=== PATIENT | female | born 1930 | race Asian ===

== ENCOUNTER → 2017-03-15 | Outpatient (CLI) | payer OTHER | LOC: ULTRA 15:38 | DX: E04.2 Nontoxic multinodular goiter (principal) ==

== ENCOUNTER 2017-04-02 11:41 | Inpatient (IN) | payer OTHER ==
[~2017-04-02] VITALS: Ht 147.3 cm; Wt 46.7 kg
[2017-04-02 11:42] VITALS: BP 157/69
[2017-04-02] MEDS ORDERED: GLIPIZIDE 10 MG10 MG PO (12:54)
[2017-04-02] MEDS ORDERED: METFORMIN HCL1000 MG PO (12:54)
[2017-04-02] MEDS ORDERED: LIPITOR 20 MG T20 M1 PO (12:55)
[2017-04-02 15:16] VITALS: BP 115/50
[2017-04-02 15:30] VITALS: BP 128/67
[2017-04-02 21:31] VITALS: BP 119/47
[2017-04-03 00:17] VITALS: BP 108/51
[2017-04-03 04:33] VITALS: BP 110/54
[2017-04-03 07:40] VITALS: BP 148/58
[2017-04-03 16:00] VITALS: BP 131/84
[2017-04-03 20:00] VITALS: BP 144/76
[2017-04-04 04:00] VITALS: BP 129/68
[2017-04-04 08:56] VITALS: BP 129/74
[2017-04-04] MEDS ORDERED: HYDROCODON-ACE1 EAC7 PO (10:28)
[2017-04-04] MEDS ORDERED: MIRALAX17 GM PO (10:29)
[2017-04-04 10:42] VITALS: BP 129/74
[2017-04-04 11:51] VITALS: BP 129/74
== END 2017-04-04 13:30 | disposition home health service (06) | DRG 544 ==
LOC: ER 11:41 → 5S 13:54 → EROBS 13:54 → 5S 15:18
DX: M80.052A Age-related osteoporosis with current pathological fracture, left femur, initial encounter for fracture (principal); E11.9 Type 2 diabetes mellitus without complications; E78.00 Pure hypercholesterolemia, unspecified; W18.39XA Other fall on same level, initial encounter; Z90.710 Acquired absence of both cervix and uterus; Z85.3 Personal history of malignant neoplasm of breast; Z86.73 Personal history of transient ischemic attack (TIA), and cerebral infarction without residual deficits; Y93.89 Activity, other specified; Y92.89 Other specified places as the place of occurrence of the external cause; Y99.8 Other external cause status
CPT/HCPCS: 10086

== ENCOUNTER → 2017-04-16 | Outpatient (CLI) | payer OTHER ==
[~2017-04-16] MED LIST: GLIPIZIDE 10 MG10 MG PO; HYDROCODON-ACE1 EAC7 PO; LIPITOR 20 MG T20 M1 PO; METFORMIN HCL1000 MG PO; MIRALAX17 GM PO
== END ==
LOC: MRI 14:28
DX: M48.56XA Collapsed vertebra, not elsewhere classified, lumbar region, initial encounter for fracture (principal); M47.896 Other spondylosis, lumbar region; M48.06 Spinal stenosis, lumbar region

== ENCOUNTER → 2017-04-24 | Outpatient (CLI) | payer OTHER ==
[~2017-04-24] VITALS: Ht 147.3 cm; Wt 44.5 kg
[~2017-04-24] MED LIST changes: +ACTOS 30 MG TAB30 M1 PO
[2017-04-24 09:15] VITALS: BP 154/69
[2017-04-24 09:34] LABS: HEMATOCRIT 38.5 % (37.0-47.0); HEMOGLOBIN 12.9 gm/dL (12.0-15.0); MCHC 33.4 g/dL (28.0-37.0); MCV 95.8 fL (80.0-100.0); RBC 4.02 mil/uL (4.20-5.00); RDW 13.8 % (10.5-14.5); WBC 5.1 thou/uL (4.0-11.0)
[2017-04-24 09:45] LABS: CALCIUM 8.8 mg/dL (8.5-10.1); CREATININE 0.7 mg/dL (0.6-1.0); POTASSIUM 3.9 mmol/L (3.5-5.1)
[2017-04-24 09:50] LABS: APTT 28.7 Seconds (24.5-32.8); PROTIME 9.6 Seconds (9.3-11.4)
== END | disposition home or self-care (01) ==
LOC: SPEC 08:10 → CAT 08:53 → SPEC 13:59
PROVIDERS: Radiology Vascular & Interventional Radiology
DX: M48.56XA Collapsed vertebra, not elsewhere classified, lumbar region, initial encounter for fracture (principal); E11.9 Type 2 diabetes mellitus without complications; E78.00 Pure hypercholesterolemia, unspecified; Z90.710 Acquired absence of both cervix and uterus; Z98.890 Other specified postprocedural states; Z79.84 Long term (current) use of oral hypoglycemic drugs

== ENCOUNTER → 2017-05-14 | Outpatient (CLI) | payer OTHER | LOC: CAT 10:06 | DX: E04.2 Nontoxic multinodular goiter (principal); R22.0 Localized swelling, mass and lump, head ==

== ENCOUNTER 2017-05-31 18:14 | Inpatient (IN) | payer OTHER ==
[~2017-05-31] VITALS: Ht 147.3 cm; Wt 46.7 kg
--- NOTE | ~2017-05-31 | EKG ---
[place] [address] [place] [address] ELECTROCARDIOGRAM REPORT Name: IGLESIA WEST Room #: 311-P ADM IN M.R.#: [id number] Admission: 05/31/17 Attend Phys: Pema Sahu Discharge: Date of : 34 Report #: [id number] THIS REPORT FOR: //name// [facility] Test Date: 2017-06-01 Test Time: 08:28:10 Pat Name: IGLESIA WEST Department: Room: 311 P Gender: F Maintenance Man: CANDY : 1930 Requested By: Teodora Sandra Order Number: [id number] MD: Chepe Travis Measurements Intervals [place] Rate: 88 P: 39 NM: 118 QRS: -1 QRSD: 69 T: 34 QT: 384 QTc: 465 Interpretive Statements Sinus rhythm Borderline short NM interval Low voltage, precordial leads Compared to ECG 09/30/2006 09:34:04 Low QRS voltage now present Electronically Signed On 06-01-2017 12:45:59 CDT by Chepe Travis [email or web address] <ELECTRONICALLY SIGNED> By: Chepe Travis MD 06/01/17 1245 7 Chepe Travis MD /CHICO
--- NOTE | ~2017-05-31 | D ---
[facility] [place] [address] DISCHARGE SUMMARY Name: IGLESIA WEST Room #: 311-P [facility] IN M.R.#: [id number] Admission: 05/31/17 Attend Phys: Pema Sahu Discharge: 06/01/17 Date of : 34 Report #: [id number] THIS REPORT FOR: //name// CC: Pema Clifforden Nancie DATE OF SERVICE: 06/01/2017 HISTORY OF PRESENT ILLNESS: The patient is an 86-year-old female with diabetes mellitus type 2 and dyslipidemia, who came to the hospital with a chest pain. Please refer to the admission H and P for details. In brief, the patient developed pain on the day of admission, that she described as "grabbing and squeezing." The pain was 7/10 in intensity. Shortly after admission, her pain resolved. HOSPITALIZATION COURSE: The patient was hospitalized for the chest pain. As noted, shortly after hospitalization pain resolved. The patient had 3 sets of the cardiac enzymes, that were negative. EKG was unremarkable. By next morning, the patient was seen by geotechnical engineer, who recommended discharging the patient home. Outpatient stress test is scheduled. Currently, the patient's overall condition and physical examination is acceptable, and as noted, she is chest pain free. DISCHARGE DIAGNOSES: 1. Atypical chest pain, resolved. 2. Diabetes mellitus type 2. 3. Dyslipidemia. DISCHARGE MEDICATIONS: Same as admission medications, please refer to the medication reconciliation list. DISPOSITION: The patient is discharged home. FOLLOWUP PLAN: 1. Outpatient myocardial stress test. 2. Follow up with the primary care physician in 1-2 weeks. By: 1243 [id number] Benny Noland MD /nt
--- NOTE | ~2017-05-31 | HC ---
[facility] [place] [address] CONSULTATION Name: IGLESIA WEST Room #: 311-P [facility] IN M.R.#: [id number] Admission: 05/31/17 Attend Phys: Pema Sahu Discharge: 06/01/17 Date of : 34 Report #: [id number] THIS REPORT FOR: //name// CC: Pema Canada DATE OF SERVICE: 06/01/2017 INDICATION: Chest pains. HISTORY OF PRESENT ILLNESS: This is an 86-year-old female presenting with complaints of chest discomfort. She was at home playing Wii with her when she developed discomfort. She describes a tightness across the chest area, radiating around the back. It was not associated with any shortness of breath or diaphoresis. The pain persisted and she came to the ER for an evaluation. The patient also reports having a rash on her face, hands and arms that began yesterday after she was outside cutting down some trees. There is no history of fever, chills, PND, orthopnea or diarrhea. PAST MEDICAL HISTORY: Significant for diabetes mellitus, contact dermatitis, and hypercholesterolemia. ALLERGIES: None. MEDICATIONS: At home include metformin, glipizide 10 mg twice a day, Lipitor 10 mg at night and Actos. SOCIAL HISTORY: Negative for tobacco use. FAMILY HISTORY: Negative for premature CAD. REVIEW OF SYSTEMS: A full 10-point review of systems performed. Only the pertinent positives and negatives are described in the HPI. PHYSICAL EXAMINATION: VITAL SIGNS: Blood pressure is 140/70, heart rate is 88 beats per minute. GENERAL APPEARANCE: This is an elderly appearing female in no acute respiratory distress. HEAD AND EYES: Normocephalic. Sclerae are anicteric. ENT: Oral mucosa moist. NECK: Supple. LUNGS: Clear to auscultation. CARDIAC: Regular rate and rhythm, S1, S2 positive. ABDOMEN: Soft, nontender. EXTREMITIES: No cyanosis, no edema. [facility] [address] [place] [address] CONSULTATION Name: IGLESAI WEST Room #: 311-P [facility] IN M.R.#: [id number] Admission: 05/31/17 Attend Phys: Pema Duncan Bernadette Discharge: 06/01/17 Date of : 34 Report #: [id number] ECG reveals sinus rhythm, otherwise within normal limits. LABORATORY VALUES: Serial troponin is negative x 3. IMPRESSION AND PLAN: 1. Chest pain syndrome, serial troponin levels are negative and the ECG is unremarkable. Her pain has resolved, unlikely to be ischemic at this time. Would consider discharge and follow up as an outpatient. 2. Diabetes mellitus, continue with medications. 3. Hypercholesterolemia, tolerating statin therapy, offers no complaints of myalgias. 4. Rash, consider antiallergic medications. Thank you for allowing me to participate in the care of your patient. <ELECTRONICALLY SIGNED> By: Chepe Travis MD 06/02/17 0836 1205 1854 Chepe Travis MD /iqra
--- NOTE | ~2017-05-31 | EKG ---
[address] [place] [address] ELECTROCARDIOGRAM REPORT Name: GILESIA WEST Room #: 311-P ADM IN M.R.#: [id number] Admission: 05/31/17 Attend Phys: Pema Sahu Discharge: Date of : 34 Report #: [id number] THIS REPORT FOR: //name// [facility] ED Test Date: 2017-05-31 Test Time: 18:22:08 Pat Name: IGLESIA WEST Department: Room: [facility] Gender: F Interventional Neuroradiologist: MARGUERITE : 1930 Requested By: Cherry Cassidy Order Number: [id number] MD: Chepe Travis Measurements Intervals [place] Rate: 68 P: 32 [place]: 135 QRS: 11 QRSD: 72 T: 48 QT: 418 QTc: 445 Interpretive Statements Sinus rhythm Compared to ECG 09/30/2006 09:34:04 No significant changes Electronically Signed On 06-01-2017 12:42:17 CDT by Chepe Travis [email or web address] <ELECTRONICALLY SIGNED> By: Chepe Travis MD 06/01/17 1242 [id number] Chepe Travis MD /CHICO
[~2017-05-31 18:14] MED LIST changes: -CLARITIN10 MG PO
[2017-05-31 18:15] VITALS: BP 162/64
[2017-05-31 19:09] LABS: ABSOLUTE NEUTROPHILS 3.4 thou/uL (1.4-8.2); BASOPHILS 0.5 % (0.0-2.0); EOSINOPHILS 1.7 % (0.0-3.0); HEMOGLOBIN 12.9 gm/dL (12.0-15.0); MCH 32.2 pg (26.0-34.0); MCV 94.9 fL (80.0-100.0); MONOCYTES 9.6 % (1.0-8.0); PLATELET COUNT 176 thou/uL (150-400); POLYS 61.2 % (36.0-66.0); RBC 4.01 mil/uL (4.20-5.00); RDW 14.2 % (10.5-14.5); WBC 5.6 thou/uL (4.0-11.0)
[2017-05-31 19:16] LABS: ANION GAP 10 mmol/L (7-16); BUN 18 mg/dL (7-18); CHLORIDE 103 mmol/L (98-107); CO2 25 mmol/L (21-32); CREATININE 0.7 mg/dL (0.6-1.0); GLUCOSE 180 mg/dL (74-106); MANUAL DIFF NO; SODIUM 138 mmol/L (136-145)
[2017-05-31 19:25] LABS: TROPONIN-I < 0.04 ng/mL (<0.04-0.07)
[2017-05-31 20:11] LABS: ALBUMIN 3.6 g/dL (3.4-5.0); ALKALINE PHOSPHATASE 126 U/L (46-116); DIRECT BILIRUBIN < 0.1 mg/dL (<0.1-0.3); SGOT 108 U/L (15-37); SGPT 53 U/L (30-65); TOTAL BILIRUBIN 0.3 mg/dL (<0.1-1.0); TOTAL PROTEIN 6.8 g/dL (6.4-8.2)
[2017-05-31 20:32] VITALS: BP 132/70
[2017-05-31 21:22] VITALS: BP 123/79
[2017-05-31 21:37] VITALS: BP 163/90
[2017-06-01 00:10] VITALS: BP 120/50
[2017-06-01 04:00] VITALS: BP 131/74
[2017-06-01 08:09] LABS: CHOLESTEROL 164 mg/dL (<200); HDL CHOLESTEROL 84 mg/dL (>40); LDL CHOLESTEROL 72 mg/dL (<100); TRIGLYCERIDE 41 mg/dL (<150); VLDL 8 mg/dL (<40)
[2017-06-01 08:16] VITALS: BP 144/76
[2017-06-01 12:12] VITALS: BP 144/76
[2017-06-01] MEDS ORDERED: CLARITIN10 MG PO (12:48)
[2017-06-01 13:04] VITALS: BP 144/76
[2017-06-01 13:25] VITALS: BP 144/76
[2017-06-02 01:05] LABS: GLYCOHEMOGLOBIN (HGB A1C) 7.7 % (4.8-5.6)
== END 2017-06-01 13:26 | disposition home or self-care (01) | DRG 313 ==
LOC: ER 18:14 → EROBS 19:59 → 3N 21:23
PROVIDERS: Emergency Medicine; Nurse Practitioner Acute Care
DX: R07.89 Other chest pain (principal); E11.9 Type 2 diabetes mellitus without complications; E78.00 Pure hypercholesterolemia, unspecified; L25.9 Unspecified contact dermatitis, unspecified cause; R21 Rash and other nonspecific skin eruption; E78.5 Hyperlipidemia, unspecified; Z80.0 Family history of malignant neoplasm of digestive organs; Z79.4 Long term (current) use of insulin; Z86.73 Personal history of transient ischemic attack (TIA), and cerebral infarction without residual deficits; Z90.710 Acquired absence of both cervix and uterus; Z82.3 Family history of stroke
CPT/HCPCS: 10096

== ENCOUNTER → 2017-05-31 | Outpatient (CLI) | payer OTHER ==
[~2017-05-31] MED LIST changes: +CLARITIN10 MG PO
--- NOTE | ~2017-05-31 | CNG ---
[facility] [place] [address] CYTO-NONGYN REPORT PROCEDURE Name: IGLESIA ANG Room #: REG Mohini Jiménez#: [id number] Admission: 05/31/17 Date of : 34 Discharge: Report #: [id number] Path Case #: [id number] CYTOPATHOLOGY REPORT COLLECTION DATE: 05/31/2017 RECEIVED DATE: 05/31/2017 SUBMITTING PHYS: Dr. Baldemar Escoto Jr. OTHER PHYS: Dr. Ulises Canada CLINICAL HISTORY: Left parotid nodule. SPECIMEN(S) RECEIVED: A.US guided Fine needle aspiration, Left parotid nodule B.US guided Needle aspiration, parotid cyst * * * * * * * * * * * * FINAL DIAGNOSIS: A. Left parotid nodule, US guided Fine needle aspiration: - No malignant epithelial cells identified. - Rare epithelioid cells, macrophages and numerous aggregates of lymphocytes present. B. Parotid cyst, US guided Needle aspiration: - No malignant epithelial cells identified. - Numerous aggregates of lymphocytes present in a background of debris. COMMENT: Numerous aggregates of lymphocytes are present in addition to rare epithelioid cells comprised of eosinophilic cytoplasm. Acinic cells or oncocytic cells or ductal epithelial cells are not present. Findings may be suggestive of aspiration of a lymph node within the parotid gland, a cyst with lymphoid tissue or chronic inflammation of the parotid gland. Nature of the sample precludes a definitive diagnosis. Please correlate clinically and follow up as indicated. PATHOLOGIST: Desire Mandel M.D. REPORT ELECTRONICALLY SIGNED BY: Desire Mandel M.D. DATE/TIME: 06/03/2017 16:50 * * * * * * * * * * * * GROSS PATHOLOGY: A. US guided Fine needle aspiration, Left parotid nodule: The specimen is labeled "Iglesia Ang" and consists of three fixed slides, three air dried slides. Twenty mL of cloudy red fluid in fixative from the needle rinse is also submitted and one ThinPrep slide and an alcohol fixed cell block were prepared from this material. Also received is the RNA Retain vial which will be held for molecular studies if needed. B. US guided Fine needle aspiration, parotid cyst: The specimen is labeled "Iglesia Ang" and consists of two fixed slides. [address] [address] CYTO-NONGYN REPORT PROCEDURE Name: IGLESIA ANG Room #: REG [facility].#: [id number] Admission: 05/31/17 Date of : 34 Discharge: Report #: [id number] Path Case #: [id number] mL of cloudy opaque fluid unfixed from the needle rinse is also submitted and one ThinPrep slide and a formalin fixed cell block were prepared from this material. (clt 05.31.2017) HEAT REGULATOR(S): TYRONE Chaudhari(ASCP) INITIAL CPT CODE(S): A; 63052, 01637 B; 86063, 41885 Professional services performed by [facility] at [address] [place] [address] Technical services performed by [facility] at [address] [place] [address]., [address], [place] [address]. [facility] [address] [place] [address], [address] [place] [address] PHONE: [phone] DIRECTOR: Gilberto Brannon M.D. * * * END OF REPORT * * *
== END | disposition home or self-care (01) ==
LOC: ULTRA 08:34
DX: K11.8 Other diseases of salivary glands (principal); K11.6 Mucocele of salivary gland; M81.0 Age-related osteoporosis without current pathological fracture; Z79.899 Other long term (current) drug therapy

== ENCOUNTER → 2017-06-13 | Outpatient (CLI) | payer OTHER ==
[~2017-06-13] MED LIST changes: +CLARITIN10 MG PO
== END ==
LOC: NUC 06:56
DX: R79.89 Other specified abnormal findings of blood chemistry (principal)

== ENCOUNTER → 2017-07-09 | Outpatient (CLI) | payer OTHER | LOC: RAD 03:25 | DX: Z12.31 Encounter for screening mammogram for malignant neoplasm of breast (principal) ==

== ENCOUNTER → 2018-07-28 | Outpatient (CLI) | payer OTHER | LOC: BC 03:22 | DX: Z12.31 Encounter for screening mammogram for malignant neoplasm of breast (principal) ==

== ENCOUNTER → 2019-03-31 | Outpatient (CLI) | payer OTHER | LOC: ULTRA 09:30 | DX: M79.652 Pain in left thigh (principal); M79.89 Other specified soft tissue disorders ==

== ENCOUNTER → 2019-08-04 | Outpatient (CLI) | payer OTHER | LOC: RAD 09:58 | DX: Z12.31 Encounter for screening mammogram for malignant neoplasm of breast (principal) ==

== ENCOUNTER 2019-12-31 21:13 | Emergency (ER) | payer OTHER ==
[~2019-12-31] VITALS: Ht 144.8 cm; Wt 47.6 kg
[2019-12-31] MEDS ORDERED: TRAMADOL 50 MG50 MG PO (23:40)
[2020-01-01] VITALS: BP 165/60
[2020-01-21] MEDS ORDERED: ATORVASTATIN CA20 MG PO (11:30)
== END 2020-01-01 00:02 | disposition home or self-care (01) ==
LOC: ER 21:13
DX: S32.020A Wedge compression fracture of second lumbar vertebra, initial encounter for closed fracture (principal); E78.00 Pure hypercholesterolemia, unspecified; Z79.899 Other long term (current) drug therapy; W18.39XA Other fall on same level, initial encounter; Y93.89 Activity, other specified; Y92.89 Other specified places as the place of occurrence of the external cause; Y99.8 Other external cause status

== ENCOUNTER → 2020-01-11 | Outpatient (CLI) | payer OTHER ==
[~2020-01-11] MED LIST changes: +TRAMADOL 50 MG50 MG PO
== END ==
LOC: MRI 08:17
DX: M47.817 Spondylosis without myelopathy or radiculopathy, lumbosacral region (principal); M48.56XA Collapsed vertebra, not elsewhere classified, lumbar region, initial encounter for fracture; M43.06 Spondylolysis, lumbar region; M51.26 Other intervertebral disc displacement, lumbar region

== ENCOUNTER → 2020-01-21 | Outpatient (CLI) | payer OTHER ==
[~2020-01-21] VITALS: Ht 142.2 cm; Wt 48.5 kg
[~2020-01-21] MED LIST changes: +ATORVASTATIN CA20 MG PO
[2020-01-21 12:00] VITALS: BP 161/66
--- NOTE | 2020-01-21 13:29 | NUR ---
pt back from IR kyphoplasty. Bandaid to back dry and intact. Pt awake and alert and wnats to sleep. VSS. will continue to monitor.
== END | disposition home or self-care (01) ==
LOC: CATH 07:19
DX: M54.9 Dorsalgia, unspecified (principal); M80.08XA Age-related osteoporosis with current pathological fracture, vertebra(e), initial encounter for fracture; E11.9 Type 2 diabetes mellitus without complications; E78.00 Pure hypercholesterolemia, unspecified; E78.5 Hyperlipidemia, unspecified; Z85.3 Personal history of malignant neoplasm of breast; Z98.51 Tubal ligation status; Z98.890 Other specified postprocedural states; Z79.899 Other long term (current) drug therapy; Z79.4 Long term (current) use of insulin

== ENCOUNTER → 2020-07-12 | Outpatient (CLI) | payer OTHER | LOC: LAB 09:36 | PROVIDERS: ATTEND Neuromusculoskeletal Medicine & OMM | DX: R05 Cough (principal); R09.89 Other specified symptoms and signs involving the circulatory and respiratory systems; J02.9 Acute pharyngitis, unspecified; Z20.828 Contact with and (suspected) exposure to other viral communicable diseases ==

== ENCOUNTER → 2020-09-06 | Outpatient (CLI) | payer OTHER | LOC: RAD 10:53 | PROVIDERS: ATTEND Neuromusculoskeletal Medicine & OMM | DX: Z12.31 Encounter for screening mammogram for malignant neoplasm of breast (principal) ==

== ENCOUNTER → 2021-09-01 | Outpatient (CLI) | payer OTHER | LOC: BC 08:56 | PROVIDERS: ATTEND Neuromusculoskeletal Medicine & OMM | DX: Z12.31 Encounter for screening mammogram for malignant neoplasm of breast (principal) ==